=== PATIENT | male | born 1960 | race Caucasian/White ===

== ENCOUNTER 2016-07-17 15:23 | Outpatient (CLI) | payer OTHER ==
--- NOTE | 2016-07-17 17:12 | DIAGNOSTIC IMAGING REPORT ---
PROCEDURE: MR LUMBAR SPINE W/O CONTRAST INDICATION: ANTEROLISTHESIS TECHNIQUE: Noncontrast T1, T2, and STIR sagittal images. T1 and T2 axial images. COMPARISON: None. FINDINGS: Grade 1 L4-5 anterolisthesis. Mild spur formation. No fracture or suspicious osseous lesion. Normal conus. Paraspinal soft tissues are normal. L1-2: Normal appearance. L2-3: Small disc bulge and mild facet arthropathy. No foraminal or spinal stenosis. L3-4: Small disc bulge and mild facet arthropathy resulting in mild bilateral foraminal stenosis. No spinal stenosis. L4-5: Grade 1 anterolisthesis with moderate broad-based disc bulge and severe facet arthropathy resulting in moderate bilateral foraminal stenosis.. There is 11 x 7 mm left synovial cyst causing moderate spinal stenosis. L5-S1: Minor disc bulge/spur complex with mild facet arthropathy resulting in mild left foraminal stenosis. No spinal stenosis. IMPRESSION: 1. Grade 1 L4-5 anterolisthesis with moderate disc bulge and moderate bilateral foraminal stenosis. There is an 11 x 7 mm left synovial cyst with moderate spinal stenosis 2. Mild bilateral L3-4 and left L5-S1 foraminal stenosis
== END 2016-07-17 23:00 ==
LOC: MRI SRH 15:23
DX: M43.16 Spondylolisthesis, lumbar region (principal); M48.07 Spinal stenosis, lumbosacral region